=== PATIENT | male | born 1965 | race Hispanic/Latino ===

== ENCOUNTER 2022-06-25 16:04 | Inpatient (IN) | payer OTHER, SELFPAY ==
[~2022-06-25 16:04] MED LIST: Iopamidol-370 76% 500 ML 1 ML ONE; Rocuronium Bromide 10 MG/ML (10ML VIAL) ONE
[2022-06-25] MEDS ORDERED: EPINEPHrine 1 MG/10 ML Abboject SYRINGE ONE (16:11)
[2022-06-25] MEDS ORDERED: Succinylcholine 200 MG/10 ml SYRINGE FS ONE (16:11)
[2022-06-25] MEDS ORDERED: Tranexamic Acid 1,000 MG/10 ML VIAL ONE (16:12)
[2022-06-25] MEDS ORDERED: fentaNYL PF 100 MCG/2 ML SYRINGE ONE (16:18)
[2022-06-25] MEDS ORDERED: HYDROmorphone 2 MG/ML VIAL ONE (16:19)
[2022-06-25 16:25] LABS: Hemoglobin 15.1 g/dL (14.0-18.0); Mean Corpuscular HGB CONC 33.4 g/dL (32.0-36.0); Mean Corpuscular Hemoglobin 32.4 pg (27.0-31.0); Platelet Count 230 10x3/uL (130-400); Red Blood Cell (RBC) Count 4.66 mill/uL (4.70-6.10); White Blood Cell (WBC) Count 18.2 10x3/uL (4.8-10.8)
[2022-06-25] MEDS ORDERED: FENTANYL 50 MCG/ML 1 ML VIAL ONE ×2 (16:25)
[2022-06-25] MEDS ORDERED: Midazolam HCl 2 mg/2 ml Vial ONE (16:25)
[2022-06-25] MEDS ORDERED: Vecuronium 10 MG VIAL ONE (16:25)
[2022-06-25] MEDS ORDERED: Sterile Water 20 ML ONE (16:26)
[2022-06-25 16:38] LABS: INR-International Normal Ratio 1.3; PTT 35.6 sec (22.9-36.1); Prothrombin Time 16.9 sec (12.0-14.7)
[2022-06-25 16:41] LABS: Band 21 % (5-11); Eosinophils 1 % (0-10); Lymphocytes 20 % (21-51); MDiff Complete? YES; Monocytes 4 % (0-10); Neutrophil 36 % (42-75); Platelet Morphology Comment Appears Adequate; Polychromasia SLIGHT = 2-3 cells (100X) (0-2/hpf); Reactive Lymphocytes 17 % (0-10)
[2022-06-25] MEDS ORDERED: Heparin 10,000 UNITS/ 10 ML VIAL ONE (16:42)
[2022-06-25] MEDS ORDERED: Esmolol 100 MG/10 ML VIAL ONE (16:43)
[2022-06-25] MEDS ORDERED: Rocuronium Bromide 10 MG/ML (10ML VIAL) ONE (16:43)
[2022-06-25 16:50] LABS: ALT (SGPT) 1093 U/L (8-55); AST (SGOT) 1270 U/L (5-34); Albumin 3.7 g/dL (3.4-4.8); Alkaline Phosphatase 103 U/L (40-110); Anion Gap 24 mmol/L (10-20); BUN (Urea Nitrogen) 14 mg/dL (8.4-25.7); Bilirubin, Total 0.7 mg/dL (0.2-1.2); Calc. Creatinine Clearance 0 mL/min (70-130); Calcium 8.3 mg/dL (7.8-10.44); Carbon Dioxide 15 mmol/L (23-31); Chloride 100 mmol/L (98-107); Estimated GFR 63; Globulin 3.6 g/dL (2.4-3.5); Glucose 280 mg/dL (80-115); Lipase 37 U/L (8-78); Potassium 4.8 mmol/L (3.5-5.1); Protein, Total 7.3 g/dL (5.8-8.1); Sodium 134 mmol/L (136-145)
[2022-06-25 16:54] LABS: Acetaminophen Less than 10.0 mcg/mL (10.0-30.0); Alcohol Less than 10 mg/dL (Less than 10); Salicylate Less than 8.0 mg/dL (15.0-30.0)
[2022-06-25] MEDS ORDERED: Dextrose 50% Abboject 50 ML SYRINGE SLOW IVP PRN (17:01)
[2022-06-25] MEDS ORDERED: TETANUS, DIPHTHERIA TOX,ADULT (TDVAX) 0.5 ML VIAL IM ONE (17:01)
[2022-06-25] MEDS ORDERED: Dextrose 5% in Water 1,000 ML IV PRN (17:01)
[2022-06-25] MEDS ORDERED: Ondansetron PF 4 MG/2 ML Vial IVP PRN (17:01)
[2022-06-25] MEDS ORDERED: Sodium Bicarb 50 MEQ/50 ML VIAL ONE ×2 (17:07→22:29)
[2022-06-25] MEDS ORDERED: Propofol 1,000 MG/100 ML VIAL IV PRN (17:15)
[2022-06-25] MEDS ORDERED: Ventilator Sedation Protocol 1 EACH FS SCH (17:15)
[2022-06-25] MEDS ORDERED: Fentanyl BOLUS 250 ML IVPB PRN (17:15)
[2022-06-25] MEDS ORDERED: Propofol BOLUS 1,000 MG/100 ML VIAL IV PRN (17:15)
[2022-06-25 17:23] LABS: Magnesium 2.7 mg/dL (1.6-2.6)
[2022-06-25] MEDS ORDERED: Piperacillin/Tazobactam 3.375 GM in Sodium Chloride 0.9% 100 ML IVPB SCH (17:30)
[2022-06-25] MEDS ORDERED: Midazolam HCl 5 mg/5 ml Vial ONE (17:52)
[2022-06-25 18:34] LABS: Troponin I 0.831 ng/mL (< 0.028)
[2022-06-25] MEDS ORDERED: NOREPINEPHRINE 8 MG/250 ML-D5W 250 ML ONE (19:20)
[2022-06-25 19:27] LABS: Actual Bicarbonate (HCO3a) 18.1 mEq/L (22-28); Base Excess (BEa) -7.7 mEq/L (-2.0 to +3.0); CO2 Tension 38.2 mmHg (35.0-45.0); Calcium, Ionized (arterial) 1.18 mmol/L (1.12-1.30); Carboxyhemoglobin (COHb) 0.1 gm% (0.0-3.0); Hemoglobin (Hb) 12.3 g/dL (14.0-18.0); O2 Tension (PaO2), arterial 262.6 mmHg (> 80.0); Potassium - ABG Lab 4.91 mmol/L (3.70-5.30); pH, Arterial 7.29 (7.35-7.45)
[2022-06-25] MEDS ORDERED: Fentanyl CADD 100 ML ONE (19:30)
[2022-06-25] MEDS ORDERED: levETIRAcetam in NS 1,000 MG in Premix Bag 1 BAG IVPB SCH (19:45)
[2022-06-25] MEDS ORDERED: Sodium Bicarb 5 MEQ/10 ML Abboject 4.2% SYRINGE IVP SCH (19:45)
[2022-06-25] MEDS: Fentanyl CADD 100 ML IV SCH (19:54)
[2022-06-25] MEDS: Sodium Chloride 0.9% 1,000 ML IV SCH (19:54)
[2022-06-25 20:03] LABS: Puncture Site ALINE
[2022-06-25] MEDS ORDERED: levETIRAcetam 500 MG/5 ML VIAL SLOW IVP SCH (20:15)
[2022-06-25] MEDS ORDERED: Sodium Bicarbonate 2.5 MEQ/5 ML VIAL IV SCH (20:15)
[2022-06-25 20:30] LABS: Hemoglobin 10.7 g/dL (14.0-18.0); Mean Corpuscular HGB CONC 34.6 g/dL (32.0-36.0); Mean Corpuscular Hemoglobin 32.7 pg (27.0-31.0); Mean Corpuscular Volume 94.5 fl (78.0-98.0); Platelet Count 154 10x3/uL (130-400); RBC Distribution Width 12.3 % (11.5-14.5); Red Blood Cell (RBC) Count 3.26 mill/uL (4.70-6.10); White Blood Cell (WBC) Count 30.9 10x3/uL (4.8-10.8)
[2022-06-25 20:49] LABS: Lactic Acid 7.4 mmol/L (0.5-2.2)
[2022-06-25 20:51] LABS: Band 33 % (5-11); Lymphocytes 10 % (21-51); MDiff Complete? YES; Metamyelocyte 1 % (0-0); Monocytes 1 % (0-10); Myelocyte 1 % (0-0); Neutrophil 54 % (42-75); Nucleated RBC 2 % (0)
[2022-06-25] MEDS ORDERED: Famotidine/PF 20 mg/2ml Vial SLOW IVP SCH (21:00)
[2022-06-25 21:02] LABS: Anion Gap 16 mmol/L (10-20); BUN (Urea Nitrogen) 16 mg/dL (8.4-25.7); CK (CPK) 1474 U/L (30-200); Calc. Creatinine Clearance 0 mL/min (70-130); Calcium 7.8 mg/dL (7.8-10.44); Carbon Dioxide 19 mmol/L (23-31); Chloride 106 mmol/L (98-107); Estimated GFR 68; Glucose 283 mg/dL (80-115); Magnesium 1.9 mg/dL (1.6-2.6); Phosphorus 5.5 mg/dL (2.3-4.7); Potassium 4.6 mmol/L (3.5-5.1); Sodium 136 mmol/L (136-145)
[2022-06-25] MEDS ORDERED: Sodium Chloride 0.9% 500 ML IV SCH ×2 (21:15)
[2022-06-25 21:18] LABS: Base Excess (BEa) -12.8 mEq/L (-2.0 to +3.0); CO2 Tension 39.4 mmHg (35.0-45.0); Carboxyhemoglobin (COHb) 0.3 gm% (0.0-3.0); Hemoglobin (Hb) 10.6 g/dL (14.0-18.0); O2 Tension (PaO2), arterial 137.4 mmHg (> 80.0)
[2022-06-25 21:20] LABS: Actual Bicarbonate (HCO3a) 14.6 mEq/L (22-28); Puncture Site ALINE; pH, Arterial 7.19 (7.35-7.45)
[2022-06-25 21:20] LABS: CKMB 32.5 ng/mL (0-6.6)
[2022-06-25] MEDS ORDERED: Sodium Chloride 0.9% 1,000 ML IV SCH ×2 (21:30→23:00)
[2022-06-25] MEDS ORDERED: Calcium Chloride 1 GM/10 ML Abboject SYRINGE ONE (21:51)
[2022-06-25] MEDS: Piperacillin/Tazobactam 3.375 GM in Sodium Chloride 0.9% 100 ML IVPB SCH ×3 (21:55→22:00)
[2022-06-25] MEDS ORDERED: Calcium Chloride 1 GM/10 ML Abboject SYRINGE IVP SCH ×2 (22:00→23:45)
[2022-06-25 22:06] LABS: Hemoglobin 9.6 g/dL (14.0-18.0); Mean Corpuscular HGB CONC 33.5 g/dL (32.0-36.0); Mean Corpuscular Hemoglobin 32.2 pg (27.0-31.0); Mean Platelet Volume 8.1 fL (7.4-10.4); Platelet Count 148 10x3/uL (130-400); RBC Distribution Width 12.6 % (11.5-14.5); Red Blood Cell (RBC) Count 2.98 mill/uL (4.70-6.10); White Blood Cell (WBC) Count 30.5 10x3/uL (4.8-10.8)
[2022-06-25 22:09] LABS: Bacteria/HPF None Seen HPF (None Seen); Bilirubin Negative (Negative); Blood, Urine 3+ (Negative); CAUTI Indications for Culture Pelvic or flank pain; Clarity Extra Turbid (Clear); Glucose, Urine (Dipstick) Normal (Negative); Ketone, Urine Negative (Negative); Leukocyte 75 Leu/uL (Negative); Nitrite Negative (Negative); Protein, Urine (Dipstick) 70 mg/dL (Neg-Trace); RBC/HPF Greater than 50 HPF (0-3); Squamous Epithelial 0-3 HPF (0-3); Urobilinogen Normal mg/dL (Less than 2); pH, Urine 5.5 (5.0-9.0)
[2022-06-25 22:11] LABS: Specific Gravity, Urine 1.054 (1.002-1.036)
[2022-06-25 22:12] LABS: Amphetamine Not Detected (NotDetected); Barbiturates Screen Not Detected (NotDetected); Benzodiazepine Screen Not Detected (NotDetected); Cocaine Metabolite Screen Detected (NotDetected); Methadone Not Detected (NotDetected); Methamphetamine Not Detected (NotDetected); Opiate Screen Not Detected (NotDetected); Oxycodone Screen Not Detected (NotDetected); Phencyclidine (PCP) Not Detected (NotDetected); THC/Cannabinoid Screen Detected (NotDetected); Tricyclic Screen Not Detected (NotDetected); Urine Culture Reflex No No
[2022-06-25 22:23] LABS: Band 25 % (5-11); Lymphocytes 9 % (21-51); MDiff Complete? YES; Metamyelocyte 1 % (0-0); Myelocyte 1 % (0-0); Neutrophil 63 % (42-75)
[2022-06-25] MEDS ORDERED: Sodium Bicarb 50 MEQ/50 ML VIAL IVP SCH ×2 (22:45→23:45)
[2022-06-25 23:18] LABS: Lactic Acid 12.2 mmol/L (0.5-2.2)
[2022-06-25 23:37] LABS: Actual Bicarbonate (HCO3a) 15.5 mEq/L (22-28); CO2 Tension 41.7 mmHg (35.0-45.0); Calcium, Ionized (arterial) 1.08 mmol/L (1.12-1.30); Carboxyhemoglobin (COHb) 0.3 gm% (0.0-3.0); Hemoglobin (Hb) 10.2 g/dL (14.0-18.0); O2 Tension (PaO2), arterial 76.7 mmHg (> 80.0); Potassium - ABG Lab 4.77 mmol/L (3.70-5.30)
[2022-06-25] MEDS: Calcium Chloride 1 GM/10 ML Abboject SYRINGE ONE ×2 (23:37→23:39)
[2022-06-25 23:38] LABS: ALV-art Gradient 370.275 mmHg (0-20); Puncture Site ALINE; pH, Arterial 7.19 (7.35-7.45)
[2022-06-25] MEDS: Sodium Bicarb 50 MEQ/50 ML VIAL ONE ×2 (23:38→23:39)
[2022-06-25] MEDS ORDERED: Magnesium 2 GM/50 ML(in water) 2 GM in Premix Bag 1 BAG IVPB SCH (23:45)
[2022-06-25] MEDS ORDERED: Hydrocortisone Sod Succ/PF 100 mg/2 ml Vial IVP SCH (23:45)
[2022-06-26] MEDS ORDERED: Sodium Chloride 0.9% 1,000 ML IV SCH ×2 (01:00→06:00)
[2022-06-26] MEDS ORDERED: Sodium Bicarb 50 MEQ/50 ML VIAL ONE ×4 (02:01→06:43)
[2022-06-26] MEDS: Sodium Chloride 0.9% 1,000 ML IV SCH (02:10)
[2022-06-26] MEDS ORDERED: Sodium Bicarb 50 MEQ/50 ML VIAL IVP SCH ×3 (02:15→07:00)
[2022-06-26 02:39] LABS: Hemoglobin 10.4 g/dL (14.0-18.0); Mean Corpuscular HGB CONC 34.4 g/dL (32.0-36.0); Mean Corpuscular Hemoglobin 32.1 pg (27.0-31.0); Mean Corpuscular Volume 93.2 fl (78.0-98.0); Mean Platelet Volume 7.8 fL (7.4-10.4); Platelet Count 122 10x3/uL (130-400); RBC Distribution Width 12.3 % (11.5-14.5); Red Blood Cell (RBC) Count 3.23 mill/uL (4.70-6.10)
[2022-06-26 02:47] LABS: INR-International Normal Ratio 1.7
[2022-06-26 03:09] LABS: Band 32 % (5-11); Lymphocytes 7 % (21-51); MDiff Complete? YES; Metamyelocyte 1 % (0-0); Monocytes 1 % (0-10); Neutrophil 59 % (42-75)
[2022-06-26 03:15] LABS: ALT (SGPT) 449 U/L (8-55); AST (SGOT) 909 U/L (5-34); Albumin 2.4 g/dL (3.4-4.8); Alkaline Phosphatase 68 U/L (40-110); Anion Gap 23 mmol/L (10-20); BUN (Urea Nitrogen) 18 mg/dL (8.4-25.7); Calc. Creatinine Clearance 0 mL/min (70-130); Calcium 8.9 mg/dL (7.8-10.44); Carbon Dioxide 16 mmol/L (23-31); Chloride 110 mmol/L (98-107); Estimated GFR 45; Globulin 1.8 g/dL (2.4-3.5); Glucose 243 mg/dL (80-115); Magnesium 2.6 mg/dL (1.6-2.6); Phosphorus 6.7 mg/dL (2.3-4.7); Potassium 4.7 mmol/L (3.5-5.1); Protein, Total 4.2 g/dL (5.8-8.1); Sodium 144 mmol/L (136-145)
[2022-06-26] MEDS ORDERED: Sodium Chloride 0.9% 500 ML IV SCH (04:45)
[2022-06-26] MEDS: NOREPINEPHRINE 8 MG/250 ML-D5W 250 ML IVPB SCH ×2 (04:51→12:26)
[2022-06-26 05:05] LABS: Base Excess (BEa) -18.2 mEq/L (-2.0 to +3.0); CO2 Tension 38.2 mmHg (35.0-45.0); Calcium, Ionized (arterial) 1.17 mmol/L (1.12-1.30); Carboxyhemoglobin (COHb) 0.3 gm% (0.0-3.0); Hemoglobin (Hb) 10.6 g/dL (14.0-18.0); Potassium - ABG Lab 5.52 mmol/L (3.70-5.30)
[2022-06-26 05:09] LABS: Actual Bicarbonate (HCO3a) 10.9 mEq/L (22-28); Puncture Site LBA; pH, Arterial 7.07 (7.35-7.45)
[2022-06-26 05:41] LABS: Lactic Acid 15.1 mmol/L (0.5-2.2)
[2022-06-26 05:42] LABS: Troponin I 7.017 ng/mL (< 0.028)
[2022-06-26] MEDS ORDERED: DOBUTamine 500 mg/250 ml 250 ML ONE (05:44)
[2022-06-26] MEDS: Hydrocortisone Sod Succ/PF 100 mg/2 ml Vial IVP SCH ×4 (05:45→23:56)
[2022-06-26] MEDS: Piperacillin/Tazobactam 3.375 GM in Sodium Chloride 0.9% 100 ML IVPB SCH ×3 (05:46→21:33)
[2022-06-26] MEDS ORDERED: DOBUTamine 500 mg/250 ml 500 MG in Premix Bag 1 BAG IVPB SCH (06:00)
[2022-06-26 07:42] LABS: Actual Bicarbonate (HCO3a) 16.6 mEq/L (22-28); Base Excess (BEa) -7.5 mEq/L (-2.0 to +3.0); CO2 Tension 29.3 mmHg (35.0-45.0); Calcium, Ionized (arterial) 1.06 mmol/L (1.12-1.30); Carboxyhemoglobin (COHb) 0.3 gm% (0.0-3.0); Hemoglobin (Hb) 10.2 g/dL (14.0-18.0); Potassium - ABG Lab 4.35 mmol/L (3.70-5.30); pH, Arterial 7.37 (7.35-7.45)
[2022-06-26] MEDS ORDERED: Hetastarch 6% 500 ML 500 ML ONE (07:44)
[2022-06-26 07:45] LABS: ALV-art Gradient 311.475 mmHg (0-20); Puncture Site Arterial Line
[2022-06-26] MEDS ORDERED: Vecuronium 10 MG VIAL ONE (07:45)
[2022-06-26] MEDS ORDERED: Vasopressin 20 UNIT, Admixture Fee 1 EACH in Sodium Chloride 0.9% 50 ML IV SCH (07:45)
[2022-06-26] MEDS ORDERED: Sterile Water 10 ML ONE (07:45)
[2022-06-26] MEDS ORDERED: Midazolam HCl 2 mg/2 ml Vial ONE ×4 (07:45→12:11)
[2022-06-26 07:49] LABS: Hemoglobin 9.6 g/dL (14.0-18.0); Mean Corpuscular Hemoglobin 32.2 pg (27.0-31.0); Mean Corpuscular Volume 94.6 fl (78.0-98.0); Mean Platelet Volume 8.5 fL (7.4-10.4); Platelet Count 102 10x3/uL (130-400); RBC Distribution Width 12.7 % (11.5-14.5); White Blood Cell (WBC) Count 15.9 10x3/uL (4.8-10.8)
[2022-06-26 07:58] LABS: Phosphorus 7.6 mg/dL (2.3-4.7)
[2022-06-26 08:10] LABS: Band 23 % (5-11); Hypochromia SLIGHT = 6-15 cells (100X) (0-5/hpf); Lymphocytes 14 % (21-51); MDiff Complete? YES; Neutrophil 63 % (42-75); Platelet Morphology Comment Appears Decreased
[2022-06-26 08:15] LABS: Lactic Acid 17.9 mmol/L (0.5-2.2)
[2022-06-26 08:41] LABS: Actual Bicarbonate (HCO3a) 15.1 mEq/L (22-28); Base Excess (BEa) -9.6 mEq/L (-2.0 to +3.0); CO2 Tension 28.9 mmHg (35.0-45.0); Calcium, Ionized (arterial) 1.04 mmol/L (1.12-1.30); Carboxyhemoglobin (COHb) 0.3 gm% (0.0-3.0); Hemoglobin (Hb) 8.5 g/dL (14.0-18.0); O2 Tension (PaO2), arterial 106.2 mmHg (> 80.0); Potassium - ABG Lab 4.08 mmol/L (3.70-5.30); pH, Arterial 7.34 (7.35-7.45)
[2022-06-26 08:44] LABS: ALV-art Gradient 356.775 mmHg (0-20); Puncture Site Arterial Line
[2022-06-26] MEDS ORDERED: Lidocaine 1% (PF) 30 ML VIAL ONE (08:55)
[2022-06-26] MEDS ORDERED: levETIRAcetam in NS 500 MG in Premix Bag 1 BAG IVPB SCH (09:00)
[2022-06-26] MEDS ORDERED: Lactated Ringer's 1,000 ML IV SCH (09:00)
[2022-06-26 09:09] LABS: Band 28 % (5-11); Hemoglobin 8.3 g/dL (14.0-18.0); Hypochromia SLIGHT = 6-15 cells (100X) (0-5/hpf); Lymphocytes 15 % (21-51); MDiff Complete? YES; Mean Corpuscular Volume 94.2 fl (78.0-98.0); Mean Platelet Volume 8.8 fL (7.4-10.4); Monocytes 5 % (0-10); Neutrophil 50 % (42-75); Platelet Count 85 10x3/uL (130-400); Platelet Morphology Comment Appears Decreased; RBC Distribution Width 12.7 % (11.5-14.5); Reactive Lymphocytes 2 % (0-10); Red Blood Cell (RBC) Count 2.58 mill/uL (4.70-6.10); White Blood Cell (WBC) Count 14.6 10x3/uL (4.8-10.8)
[2022-06-26 09:11] LABS: INR-International Normal Ratio 2.4; Prothrombin Time 27.1 sec (12.0-14.7)
[2022-06-26 09:12] LABS: Anion Gap 28 mmol/L (10-20); BUN (Urea Nitrogen) 19 mg/dL (8.4-25.7); Calc. Creatinine Clearance 46 mL/min (70-130); Calcium 8.1 mg/dL (7.8-10.44); Carbon Dioxide 17 mmol/L (23-31); Chloride 110 mmol/L (98-107); Estimated GFR 42; Glucose 163 mg/dL (80-115); PTT 42.8 sec (22.9-36.1); Potassium 4.3 mmol/L (3.5-5.1)
[2022-06-26 09:28] LABS: Lactic Acid 18.3 mmol/L (0.5-2.2); Sodium 151 mmol/L (136-145)
[2022-06-26] MEDS ORDERED: FENTANYL 50 MCG/ML 1 ML VIAL ONE ×2 (09:44→10:48)
[2022-06-26] MEDS ORDERED: Iopamidol 370 76% 50 ML VIAL FS ONE (11:02)
[2022-06-26] MEDS ORDERED: Iopamidol 370 76% 100 ML VIAL ONE (11:02)
[2022-06-26] MEDS ORDERED: Dextrose 5 %-0.45 % NaCl 1,000 ML IV SCH (11:30)
[2022-06-26 11:34] LABS: Hemoglobin 10.8 g/dL (14.0-18.0); Mean Corpuscular HGB CONC 33.3 g/dL (32.0-36.0); Mean Corpuscular Hemoglobin 31.2 pg (27.0-31.0); Mean Corpuscular Volume 93.8 fl (78.0-98.0); Mean Platelet Volume 8.5 fL (7.4-10.4); Platelet Count 101 10x3/uL (130-400); RBC Distribution Width 12.5 % (11.5-14.5); Red Blood Cell (RBC) Count 3.46 mill/uL (4.70-6.10); White Blood Cell (WBC) Count 18.6 10x3/uL (4.8-10.8)
[2022-06-26] MEDS: levETIRAcetam 500 MG/5 ML VIAL SLOW IVP SCH ×2 (11:40→20:32)
[2022-06-26] MEDS: Sodium Bicarbonate 100 MEQ in Dextrose 5% in Water 1,000 ML IV SCH ×3 (11:40→20:49)
[2022-06-26 11:44] LABS: Actual Bicarbonate (HCO3a) 15.8 mEq/L (22-28); Base Excess (BEa) -8.9 mEq/L (-2.0 to +3.0); CO2 Tension 30.2 mmHg (35.0-45.0); Calcium, Ionized (arterial) 1.06 mmol/L (1.12-1.30); Carboxyhemoglobin (COHb) 0.5 gm% (0.0-3.0); Hemoglobin (Hb) 10.9 g/dL (14.0-18.0); O2 Tension (PaO2), arterial 74.7 mmHg (> 80.0); Potassium - ABG Lab 4.27 mmol/L (3.70-5.30); pH, Arterial 7.34 (7.35-7.45)
[2022-06-26 11:45] LABS: Puncture Site Arterial Line
[2022-06-26 11:53] LABS: Band 31 % (5-11); Hypochromia SLIGHT = 6-15 cells (100X) (0-5/hpf); Lymphocytes 14 % (21-51); MDiff Complete? YES; Monocytes 4 % (0-10); Neutrophil 51 % (42-75); Platelet Morphology Comment Appears Decreased
[2022-06-26] MEDS ORDERED: Calcium Chloride 1 GM/10 ML Abboject SYRINGE IVP SCH ×2 (12:15→17:15)
[2022-06-26] MEDS ORDERED: Midazolam HCl 2 mg/2 ml Vial SLOW IVP SCH (13:00)
[2022-06-26 14:09] LABS: Actual Bicarbonate (HCO3v) 17 mEq/L (22-28); Base Excess -8.7 mEq/L (-2.0 to +3.0); Calcium, Ionized (venous) 1.13 mmol/L (1.16-1.32); Chloride (VBG) 107 mmol/L (98-106); Hemoglobin (Hb) 10.6 g/dL (12.6-17.4); Potassium (VBG) 4.24 mmol/L (3.70-5.30)
[2022-06-26 14:22] LABS: Anion Gap 24 mmol/L (10-20); BUN (Urea Nitrogen) 19 mg/dL (8.4-25.7); Calc. Creatinine Clearance 51 mL/min (70-130); Carbon Dioxide 18 mmol/L (23-31); Chloride 111 mmol/L (98-107); Estimated GFR 47; Glucose 203 mg/dL (80-115); Potassium 4.2 mmol/L (3.5-5.1); Sodium 149 mmol/L (136-145)
[2022-06-26 14:41] LABS: Lactic Acid 12.3 mmol/L (0.5-2.2)
[2022-06-26] MEDS: Insulin Regular 300 UNITS/3 ML VIAL SC PRN ×2 (16:10→21:33)
[2022-06-26 18:23] LABS: Hemoglobin 9.6 g/dL (14.0-18.0); Mean Corpuscular HGB CONC 33.9 g/dL (32.0-36.0); Mean Corpuscular Hemoglobin 31.5 pg (27.0-31.0); Mean Corpuscular Volume 92.7 fl (78.0-98.0); Mean Platelet Volume 8.8 fL (7.4-10.4); Platelet Count 89 10x3/uL (130-400); RBC Distribution Width 12.8 % (11.5-14.5); Red Blood Cell (RBC) Count 3.04 mill/uL (4.70-6.10); White Blood Cell (WBC) Count 18.1 10x3/uL (4.8-10.8)
[2022-06-26 18:38] LABS: INR-International Normal Ratio 2.3; PTT 37.3 sec (22.9-36.1); Prothrombin Time 26.7 sec (12.0-14.7)
[2022-06-26 18:44] LABS: Band 27 % (5-11); Lactic Acid 12.4 mmol/L (0.5-2.2); Lymphocytes 8 % (21-51); MDiff Complete? YES; Metamyelocyte 1 % (0-0); Monocytes 1 % (0-10); Neutrophil 63 % (42-75); Ovalocytes SLIGHT = 2-5 cells (100X) (0-1/hpf); Platelet Morphology Comment Appears Decreased; Polychromasia SLIGHT = 2-3 cells (100X) (0-2/hpf)
[2022-06-26 18:49] LABS: Anion Gap 22 mmol/L (10-20); BUN (Urea Nitrogen) 22 mg/dL (8.4-25.7); Calc. Creatinine Clearance 47 mL/min (70-130); Calcium 10.6 mg/dL (7.8-10.44); Carbon Dioxide 19 mmol/L (23-31); Chloride 110 mmol/L (98-107); Estimated GFR 43; Glucose 220 mg/dL (80-115); Magnesium 2.2 mg/dL (1.6-2.6); Phosphorus 5.9 mg/dL (2.3-4.7); Potassium 3.9 mmol/L (3.5-5.1); Sodium 147 mmol/L (136-145)
[2022-06-26] MEDS: Famotidine/PF 20 mg/2ml Vial SLOW IVP SCH (20:32)
[2022-06-26] MEDS: Melatonin 3 MG TAB PO SCH (20:32)
[2022-06-26 22:41] LABS: Band 41 % (5-11); Hemoglobin 9.1 g/dL (14.0-18.0); Lymphocytes 5 % (21-51); MDiff Complete? YES; Mean Corpuscular HGB CONC 33.4 g/dL (32.0-36.0); Mean Corpuscular Hemoglobin 30.3 pg (27.0-31.0); Mean Corpuscular Volume 90.9 fl (78.0-98.0); Mean Platelet Volume 9.5 fL (7.4-10.4); Monocytes 3 % (0-10); Neutrophil 51 % (42-75); Platelet Count 89 10x3/uL (130-400); Platelet Morphology Comment Appears Decreased; RBC Distribution Width 12.9 % (11.5-14.5); Red Blood Cell (RBC) Count 2.99 mill/uL (4.70-6.10); White Blood Cell (WBC) Count 17.9 10x3/uL (4.8-10.8)
[2022-06-26 22:58] LABS: Lactic Acid 9.6 mmol/L (0.5-2.2)
[2022-06-26 23:17] LABS: Anion Gap 20 mmol/L (10-20); BUN (Urea Nitrogen) 23 mg/dL (8.4-25.7); Calc. Creatinine Clearance 53 mL/min (70-130); Calcium 8.9 mg/dL (7.8-10.44); Carbon Dioxide 20 mmol/L (23-31); Chloride 110 mmol/L (98-107); Estimated GFR 49; Glucose 220 mg/dL (80-115); Magnesium 2.2 mg/dL (1.6-2.6); Phosphorus 4.5 mg/dL (2.3-4.7); Potassium 3.9 mmol/L (3.5-5.1); Sodium 146 mmol/L (136-145)
[2022-06-27] MEDS: Insulin Regular 300 UNITS/3 ML VIAL SC PRN ×3 (00:01→08:01)
[2022-06-27 05:15] LABS: INR-International Normal Ratio 2.3; PTT 37.2 sec (22.9-36.1)
[2022-06-27 05:19] LABS: Anion Gap 20 mmol/L (10-20); BUN (Urea Nitrogen) 24 mg/dL (8.4-25.7); Calc. Creatinine Clearance 53 mL/min (70-130); Calcium 8.7 mg/dL (7.8-10.44); Carbon Dioxide 23 mmol/L (23-31); Chloride 107 mmol/L (98-107); Estimated GFR 49; Glucose 261 mg/dL (80-115); Magnesium 2.2 mg/dL (1.6-2.6); Phosphorus 3.7 mg/dL (2.3-4.7); Potassium 3.7 mmol/L (3.5-5.1); Sodium 146 mmol/L (136-145)
[2022-06-27 05:22] LABS: Lactic Acid 7.6 mmol/L (0.5-2.2)
[2022-06-27 05:31] LABS: CK (CPK) 4280 U/L (30-200)
[2022-06-27] MEDS: Hydrocortisone Sod Succ/PF 100 mg/2 ml Vial IVP SCH ×3 (05:57→17:27)
[2022-06-27] MEDS: Piperacillin/Tazobactam 3.375 GM in Sodium Chloride 0.9% 100 ML IVPB SCH ×3 (05:57→21:20)
[2022-06-27 07:08] LABS: Band 72 % (5-11); Hemoglobin 9.4 g/dL (14.0-18.0); Lymphocytes 7 % (21-51); MDiff Complete? YES; Mean Corpuscular HGB CONC 35.1 g/dL (32.0-36.0); Mean Corpuscular Hemoglobin 31.9 pg (27.0-31.0); Mean Platelet Volume 9.7 fL (7.4-10.4); Monocytes 1 % (0-10); Neutrophil 20 % (42-75); Platelet Count 88 10x3/uL (130-400); Platelet Morphology Comment Appears Decreased; Polychromasia SLIGHT = 2-3 cells (100X) (0-2/hpf); RBC Distribution Width 12.8 % (11.5-14.5); Red Blood Cell (RBC) Count 2.94 mill/uL (4.70-6.10); White Blood Cell (WBC) Count 17.8 10x3/uL (4.8-10.8)
[2022-06-27] MEDS: Sodium Bicarbonate 100 MEQ in Dextrose 5% in Water 1,000 ML IV SCH ×2 (07:27→17:11)
[2022-06-27] MEDS: Fentanyl CADD 100 ML IV SCH (08:28)
[2022-06-27] MEDS: levETIRAcetam 500 MG/5 ML VIAL SLOW IVP SCH ×2 (08:28→21:21)
[2022-06-27] MEDS ORDERED: Metoprolol Tartrate 25 MG TAB PO SCH ×2 (09:00)
[2022-06-27] MEDS ORDERED: Potassium Phosphate 30 MMOL in Sodium Chloride 0.9% 250 ML 250 ML IVPB SCH (09:00)
[2022-06-27 09:19] LABS: Actual Bicarbonate (HCO3a) 27.2 mEq/L (22-28); CO2 Tension 31.1 mmHg (35.0-45.0); Calcium, Ionized (arterial) 1.07 mmol/L (1.12-1.30); Carboxyhemoglobin (COHb) 0.2 gm% (0.0-3.0); Hemoglobin (Hb) 9.6 g/dL (14.0-18.0); Potassium - ABG Lab 3.01 mmol/L (3.70-5.30); pH, Arterial 7.56 (7.35-7.45)
[2022-06-27 09:31] LABS: O2 Tension (PaO2), arterial 58.9 mmHg (> 80.0)
[2022-06-27 09:32] LABS: ALV-art Gradient 258.725 mmHg (0-20); Puncture Site Arterial Line
[2022-06-27] MEDS: HUMULIN R 100 UNITS in Sodium Chloride 0.9% 100 ML IVPB SCH (10:27)
[2022-06-27] MEDS: Metoprolol Tartrate 25 MG TAB PO SCH (17:45)
[2022-06-27] MEDS: Famotidine/PF 20 mg/2ml Vial SLOW IVP SCH (21:20)
[2022-06-27] MEDS: Melatonin 3 MG TAB PO SCH (21:21)
[2022-06-28] MEDS: Acetaminophen 650 MG/20.3 ML UDCUP PO SCH ×4 (01:07→16:48)
[2022-06-28] MEDS: Hydrocortisone Sod Succ/PF 100 mg/2 ml Vial IVP SCH ×4 (01:08→18:05)
[2022-06-28] MEDS: Sodium Bicarbonate 100 MEQ in Dextrose 5% in Water 1,000 ML IV SCH (04:38)
[2022-06-28] MEDS: HUMULIN R 100 UNITS in Sodium Chloride 0.9% 100 ML IVPB SCH (04:38)
[2022-06-28 05:38] LABS: Hemoglobin 8.5 g/dL (14.0-18.0); Mean Corpuscular HGB CONC 34.7 g/dL (32.0-36.0); Mean Corpuscular Hemoglobin 32.3 pg (27.0-31.0); Mean Corpuscular Volume 93.1 fl (78.0-98.0); Mean Platelet Volume 9.3 fL (7.4-10.4); Platelet Count 89 10x3/uL (130-400); RBC Distribution Width 12.5 % (11.5-14.5); Red Blood Cell (RBC) Count 2.64 mill/uL (4.70-6.10); White Blood Cell (WBC) Count 14.2 10x3/uL (4.8-10.8)
[2022-06-28 05:49] LABS: Band 42 % (5-11); Lymphocytes 7 % (21-51); MDiff Complete? YES; Monocytes 6 % (0-10); Neutrophil 45 % (42-75); Platelet Morphology Comment Appears Decreased
[2022-06-28 05:55] LABS: Critical Call Chem Troponin I RESULT DECREASING; Troponin I 2.448 ng/mL (< 0.028)
[2022-06-28 05:58] LABS: Anion Gap 9 mmol/L (10-20); BUN (Urea Nitrogen) 28 mg/dL (8.4-25.7); Calc. Creatinine Clearance 69 mL/min (70-130); Calcium 7.9 mg/dL (7.8-10.44); Carbon Dioxide 35 mmol/L (23-31); Chloride 103 mmol/L (98-107); Estimated GFR 67; Glucose 159 mg/dL (80-115); Magnesium 2.1 mg/dL (1.6-2.6); Phosphorus 2.9 mg/dL (2.3-4.7); Potassium 2.9 mmol/L (3.5-5.1); Sodium 144 mmol/L (136-145)
[2022-06-28] MEDS: Piperacillin/Tazobactam 3.375 GM in Sodium Chloride 0.9% 100 ML IVPB SCH ×3 (06:19→21:15)
[2022-06-28] MEDS: Metoprolol Tartrate 25 MG TAB PO SCH ×3 (06:21→19:49)
[2022-06-28 06:53] LABS: SARS-CoV-2 NAA Rapid Test Not Detected (NotDetected)
[2022-06-28] MEDS ORDERED: Potassium Phosphate 30 MMOL in Sodium Chloride 0.9% 250 ML 250 ML IVPB SCH (08:30)
[2022-06-28] MEDS ORDERED: Morphine 2 MG/ML VIAL SLOW IVP PRN (09:49)
[2022-06-28 09:54] LABS: Lactic Acid 2.6 mmol/L (0.5-2.2)
[2022-06-28] MEDS: levETIRAcetam 500 MG/5 ML VIAL SLOW IVP SCH ×2 (09:59→21:13)
[2022-06-28] MEDS: Famotidine/PF 20 mg/2ml Vial SLOW IVP SCH ×2 (09:59→21:13)
[2022-06-28] MEDS: Acetaminophen 500 MG TAB PO SCH ×3 (13:14→21:13)
[2022-06-28] MEDS: Morphine 4 MG/ML VIAL SLOW IVP PRN ×2 (14:14→22:44)
[2022-06-28] MEDS: hydrALAZINE 20 MG/ML VIAL SLOW IVP PRN (15:37)
[2022-06-28] MEDS: Melatonin 3 MG TAB PO SCH ×2 (21:13→21:25)
[2022-06-28] MEDS ORDERED: Labetalol HCl 100 MG/20 ML VIAL SLOW IVP SCH (21:15)
[2022-06-29] MEDS: Hydrocortisone Sod Succ/PF 100 mg/2 ml Vial IVP SCH ×4 (00:08→20:36)
[2022-06-29] MEDS: cloNIDine 0.1 MG TAB PO SCH ×4 (00:08→22:34)
[2022-06-29] MEDS ORDERED: diphenhydrAMINE 50 MG/ML VIAL ONE (01:08)
[2022-06-29] MEDS ORDERED: diphenhydrAMINE 50 MG/ML VIAL IVP SCH (01:15)
[2022-06-29] MEDS ORDERED: Midazolam HCl 2 mg/2 ml Vial ONE ×3 (01:15→14:45)
[2022-06-29] MEDS ORDERED: Midazolam HCl 2 mg/2 ml Vial SLOW IVP SCH ×2 (01:15→02:10)
[2022-06-29] MEDS ORDERED: Furosemide 40 MG/4 ML VIAL ONE (01:35)
[2022-06-29] MEDS ORDERED: Furosemide 20 MG/2 ML VIAL SLOW IVP SCH ×2 (01:45→13:45)
[2022-06-29 02:31] LABS: Actual Bicarbonate (HCO3a) 33.1 mEq/L (22-28); Base Excess (BEa) 7.7 mEq/L (-2.0 to +3.0); CO2 Tension 51.1 mmHg (35.0-45.0); Calcium, Ionized (arterial) 1.07 mmol/L (1.12-1.30); Carboxyhemoglobin (COHb) 0.3 gm% (0.0-3.0); Hemoglobin (Hb) 9.5 g/dL (14.0-18.0); Potassium - ABG Lab 2.95 mmol/L (3.70-5.30); pH, Arterial 7.43 (7.35-7.45)
[2022-06-29 02:32] LABS: Puncture Site LRA
[2022-06-29] MEDS ORDERED: Calcium Chloride 1 GM/10 ML Abboject SYRINGE IVP SCH (02:45)
[2022-06-29] MEDS ORDERED: Calcium Chloride 1 GM/10 ML Abboject SYRINGE ONE (02:53)
[2022-06-29] MEDS ORDERED: Potassium Chloride 40 MEQ in Premix Bag 1 BAG IVPB SCH ×2 (03:00→13:00)
[2022-06-29] MEDS: Acetaminophen 500 MG TAB PO SCH ×4 (03:22→20:40)
[2022-06-29] MEDS ORDERED: Dextrose 5% in Water 1,000 ML IV PRN (03:26)
[2022-06-29] MEDS ORDERED: Dextrose 50% Abboject 50 ML SYRINGE SLOW IVP PRN (03:26)
[2022-06-29 05:02] LABS: #Lymphocytes 1.6 thou/uL (1.20-3.40); #Monocytes 0.7 thou/uL (0.11-0.59); #Neutrophils 12.3 thou/uL (1.40-6.50); %Basophils 0.1 % (0.0-1.0); %Eosinophils 0.1 % (0.0-10.0); %Lymphocytes 10.7 % (21.0-51.0); %Monocytes 5.1 % (0.0-10.0); Hemoglobin 8.4 g/dL (14.0-18.0); Mean Corpuscular HGB CONC 34.6 g/dL (32.0-36.0); Mean Corpuscular Hemoglobin 32.6 pg (27.0-31.0); Mean Corpuscular Volume 94.4 fl (78.0-98.0); Mean Platelet Volume 8.7 fL (7.4-10.4); Platelet Count 104 10x3/uL (130-400); RBC Distribution Width 12.4 % (11.5-14.5); Red Blood Cell (RBC) Count 2.56 mill/uL (4.70-6.10); White Blood Cell (WBC) Count 14.6 10x3/uL (4.8-10.8)
[2022-06-29 05:09] LABS: Lactic Acid 1.7 mmol/L (0.5-2.2)
[2022-06-29 05:21] LABS: Anion Gap 11 mmol/L (10-20); BUN (Urea Nitrogen) 26 mg/dL (8.4-25.7); Calc. Creatinine Clearance 86 mL/min (70-130); Calcium 9.5 mg/dL (7.8-10.44); Carbon Dioxide 33 mmol/L (23-31); Chloride 106 mmol/L (98-107); Estimated GFR 90; Glucose 131 mg/dL (80-115); Phosphorus 4.2 mg/dL (2.3-4.7); Potassium 3.3 mmol/L (3.5-5.1); Sodium 147 mmol/L (136-145)
[2022-06-29] MEDS: Metoprolol Tartrate 25 MG TAB PO SCH ×3 (06:31→20:59)
[2022-06-29] MEDS: Piperacillin/Tazobactam 3.375 GM in Sodium Chloride 0.9% 100 ML IVPB SCH ×3 (06:31→22:34)
[2022-06-29 07:45] LABS: Actual Bicarbonate (HCO3a) 33.1 mEq/L (22-28); Base Excess (BEa) 8.6 mEq/L (-2.0 to +3.0); Calcium, Ionized (arterial) 1.19 mmol/L (1.12-1.30); Carboxyhemoglobin (COHb) 0.6 gm% (0.0-3.0); Hemoglobin (Hb) 8.3 g/dL (14.0-18.0); Potassium - ABG Lab 3.24 mmol/L (3.70-5.30); pH, Arterial 7.48 (7.35-7.45)
[2022-06-29 07:47] LABS: Puncture Site RBA
[2022-06-29] MEDS: levETIRAcetam 500 MG/5 ML VIAL SLOW IVP SCH ×2 (11:34→20:36)
[2022-06-29] MEDS: Famotidine/PF 20 mg/2ml Vial SLOW IVP SCH ×2 (11:34→20:37)
[2022-06-29] MEDS: carBAMazepine 200 MG TAB PO SCH ×3 (11:35→18:32)
[2022-06-29] MEDS: Potassium Chloride 20 MEQ in Premix Bag 1 BAG IVPB SCH ×3 (11:45→23:05)
[2022-06-29] MEDS ORDERED: EPINEPHrine 1 MG/ML AMP ONE (13:53)
[2022-06-29] MEDS ORDERED: Lidocaine 1% (PF) 30 ML VIAL ONE (13:53)
[2022-06-29] MEDS ORDERED: Bupivacaine/Epinephrine 0.25% 30 ML VIAL ONE (13:53)
[2022-06-29] MEDS ORDERED: Chlorhexidine Gluconate 15 ML UDCUP SSP ONE (13:53)
[2022-06-29] MEDS ORDERED: fentaNYL PF 100 MCG/2 ML SYRINGE ONE (14:23)
[2022-06-29] MEDS ORDERED: Lidocaine 2% 6 ML SYR ONE (14:45)
[2022-06-29] MEDS ORDERED: Oxymetazoline HCl 0.05% (30 ML BOT) ONE (14:45)
[2022-06-29] MEDS ORDERED: Phenylephrine 10 MG/ML VIAL ONE (14:59)
[2022-06-29] MEDS ORDERED: Dexamethasone 20 MG/5 ML VIAL ONE (14:59)
[2022-06-29] MEDS ORDERED: Ondansetron PF 4 MG/2 ML Vial ONE (14:59)
[2022-06-29] MEDS ORDERED: Rocuronium Bromide 10 MG/ML (10ML VIAL) ONE (14:59)
[2022-06-29] MEDS ORDERED: PROPOFOL 200 MG/20 ML VIAL ONE (14:59)
[2022-06-29] MEDS ORDERED: ePHEDrine 50 MG/ML VIAL ONE (14:59)
[2022-06-29] MEDS ORDERED: Neomycin-Polymyxin 1 ML AMP ONE (15:36)
[2022-06-29] MEDS ORDERED: Bacitracin Zinc Ointment 30 gm TUBE ONE (17:22)
[2022-06-29] MEDS ORDERED: FENTANYL 500 MCG/10 ML VIAL 2,000 MCG in Sodium Chloride 0.9% 60 ML IV PRN (17:39)
[2022-06-29] MEDS ORDERED: Dexmedetomidine In 0.9 % NaCl 100 ML IVPB SCH (18:00)
[2022-06-29] MEDS ORDERED: Fentanyl CADD 100 ML ONE (18:14)
[2022-06-29 18:16] LABS: Actual Bicarbonate (HCO3a) 32.8 mEq/L (22-28); CO2 Tension 47.6 mmHg (35.0-45.0); Calcium, Ionized (arterial) 1.08 mmol/L (1.12-1.30); Carboxyhemoglobin (COHb) 0.5 gm% (0.0-3.0); Hemoglobin (Hb) 8.6 g/dL (14.0-18.0); O2 Tension (PaO2), arterial 87.7 mmHg (> 80.0); Potassium - ABG Lab 3.48 mmol/L (3.70-5.30); pH, Arterial 7.46 (7.35-7.45)
[2022-06-29 18:20] LABS: Puncture Site RBR
[2022-06-29] MEDS ORDERED: Fentanyl CADD 100 ML IV SCH (18:30)
[2022-06-29 19:27] LABS: Anion Gap 12 mmol/L (10-20); BUN (Urea Nitrogen) 27 mg/dL (8.4-25.7); Calc. Creatinine Clearance 102 mL/min (70-130); Carbon Dioxide 31 mmol/L (23-31); Chloride 109 mmol/L (98-107); Estimated GFR 97; Glucose 160 mg/dL (80-115); Magnesium 1.9 mg/dL (1.6-2.6); Phosphorus 3.6 mg/dL (2.3-4.7); Potassium 3.7 mmol/L (3.5-5.1); Sodium 148 mmol/L (136-145)
[2022-06-29] MEDS: Melatonin 3 MG TAB PO SCH (20:37)
[2022-06-29] MEDS ORDERED: Magnesium 2 GM/50 ML(in water) 2 GM in Premix Bag 1 BAG IVPB SCH (20:45)
[2022-06-29] MEDS: Bacitracin 1 PK TOP SCH (20:46)
[2022-06-30] MEDS: cloNIDine 0.1 MG TAB PO SCH ×2 (00:16→05:03)
[2022-06-30] MEDS: Hydrocortisone Sod Succ/PF 100 mg/2 ml Vial IVP SCH ×4 (00:17→17:44)
[2022-06-30] MEDS: Potassium Chloride 20 MEQ in Premix Bag 1 BAG IVPB SCH (00:18)
[2022-06-30] MEDS: HumaLOG 300 UNITS/3 ML VIAL SC PRN ×5 (00:24→21:04)
[2022-06-30] MEDS ORDERED: Fentanyl CADD 100 ML ONE (03:39)
[2022-06-30] MEDS: Acetaminophen 500 MG TAB PO SCH ×2 (04:58→09:29)
[2022-06-30] MEDS: Piperacillin/Tazobactam 3.375 GM in Sodium Chloride 0.9% 100 ML IVPB SCH ×3 (05:03→22:04)
[2022-06-30] MEDS: Metoprolol Tartrate 25 MG TAB PO SCH ×3 (05:04→17:44)
[2022-06-30] MEDS: carBAMazepine 200 MG TAB PO SCH ×3 (08:05→16:22)
[2022-06-30] MEDS ORDERED: Midazolam HCl 2 mg/2 ml Vial SLOW IVP SCH (08:45)
[2022-06-30 08:56] LABS: Hemoglobin 8.7 g/dL (14.0-18.0); Mean Corpuscular HGB CONC 33.5 g/dL (32.0-36.0); Mean Corpuscular Hemoglobin 32.1 pg (27.0-31.0); Mean Corpuscular Volume 95.8 fl (78.0-98.0); Mean Platelet Volume 9.1 fL (7.4-10.4); Platelet Count 141 10x3/uL (130-400); RBC Distribution Width 12.5 % (11.5-14.5); White Blood Cell (WBC) Count 18.7 10x3/uL (4.8-10.8)
[2022-06-30] MEDS: levETIRAcetam 500 MG/5 ML VIAL SLOW IVP SCH ×2 (09:09→20:02)
[2022-06-30] MEDS: Bacitracin 1 PK TOP SCH ×2 (09:09→20:02)
[2022-06-30] MEDS: Famotidine/PF 20 mg/2ml Vial SLOW IVP SCH ×2 (09:09→20:02)
[2022-06-30] MEDS: Cyclobenzaprine 10 MG TAB PO PRN ×2 (09:29→23:33)
[2022-06-30] MEDS ORDERED: Propofol 1,000 MG/100 ML VIAL IV ONE (09:37)
[2022-06-30 09:38] LABS: Band 14 % (5-11); Lymphocytes 6 % (21-51); MDiff Complete? YES; Metamyelocyte 1 % (0-0); Monocytes 4 % (0-10); Neutrophil 75 % (42-75); Platelet Morphology Comment Appears Adequate; Polychromasia SLIGHT = 2-3 cells (100X) (0-2/hpf)
[2022-06-30] MEDS ORDERED: Midazolam HCl 2 mg/2 ml Vial IVP SCH (09:45)
[2022-06-30 09:59] LABS: Phosphorus 2.7 mg/dL (2.3-4.7)
[2022-06-30 10:00] LABS: Anion Gap 13 mmol/L (10-20); BUN (Urea Nitrogen) 36 mg/dL (8.4-25.7); Calc. Creatinine Clearance 90 mL/min (70-130); Calcium 8.2 mg/dL (7.8-10.44); Carbon Dioxide 30 mmol/L (23-31); Chloride 110 mmol/L (98-107); Estimated GFR 87; Glucose 175 mg/dL (80-115); Magnesium 2.5 mg/dL (1.6-2.6); Potassium 3.5 mmol/L (3.5-5.1); Sodium 149 mmol/L (136-145)
[2022-06-30] MEDS ORDERED: Nicotine 14 MG PATCH TOP SCH (10:45)
[2022-06-30] MEDS ORDERED: Acetaminophen/Codeine 30-300mg Tablet PO PRN (10:51)
[2022-06-30] MEDS ORDERED: Morphine 2 MG/ML VIAL SLOW IVP PRN (10:53)
[2022-06-30] MEDS: Acetaminophen/Codeine 30-300mg Tablet PO SCH ×3 (12:20→22:03)
[2022-06-30] MEDS ORDERED: Potassium Phosphate 30 MMOL in Sodium Chloride 0.9% 250 ML 250 ML IVPB SCH (12:30)
[2022-06-30] MEDS: Oxazepam 10 MG CAP PO SCH ×2 (13:27→22:02)
[2022-06-30] MEDS: Acetaminophen 325 MG TAB PO SCH ×2 (16:20→22:03)
[2022-06-30] MEDS ORDERED: Furosemide 20 MG/2 ML VIAL SLOW IVP SCH (19:30)
[2022-06-30] MEDS ORDERED: Potassium Chloride 40 MEQ in Premix Bag 1 BAG IVPB SCH (19:30)
[2022-06-30] MEDS: Melatonin 3 MG TAB PO SCH (20:02)
[2022-06-30] MEDS: hydrALAZINE 20 MG/ML VIAL SLOW IVP PRN (20:02)
[2022-06-30] MEDS: cloNIDine 0.2 MG TAB PO SCH (22:03)
[2022-07-01] MEDS ORDERED: Morphine 4 MG/ML VIAL SLOW IVP PRN (03:05)
[2022-07-01] MEDS: Acetaminophen 325 MG TAB PO SCH ×4 (03:18→21:33)
[2022-07-01] MEDS: cloNIDine 0.2 MG TAB PO SCH ×4 (04:07→23:28)
[2022-07-01] MEDS: Acetaminophen/Codeine 30-300mg Tablet PO SCH ×5 (04:08→23:35)
[2022-07-01] MEDS: Metoprolol Tartrate 25 MG TAB PO SCH (04:08)
[2022-07-01] MEDS: Oxazepam 10 MG CAP PO SCH ×3 (04:08→23:28)
[2022-07-01] MEDS: Piperacillin/Tazobactam 3.375 GM in Sodium Chloride 0.9% 100 ML IVPB SCH ×3 (04:09→21:32)
[2022-07-01] MEDS: hydrALAZINE 20 MG/ML VIAL SLOW IVP PRN ×2 (04:09→10:49)
[2022-07-01] MEDS: HumaLOG 300 UNITS/3 ML VIAL SC PRN ×2 (04:19→23:46)
[2022-07-01 04:20] LABS: Hemoglobin 8.5 g/dL (14.0-18.0); Mean Corpuscular HGB CONC 32.2 g/dL (32.0-36.0); Mean Corpuscular Hemoglobin 32.6 pg (27.0-31.0); Mean Platelet Volume 9.6 fL (7.4-10.4); Platelet Count 141 10x3/uL (130-400); RBC Distribution Width 13.1 % (11.5-14.5); Red Blood Cell (RBC) Count 2.59 mill/uL (4.70-6.10); White Blood Cell (WBC) Count 24.3 10x3/uL (4.8-10.8)
[2022-07-01 04:38] LABS: Anion Gap 13 mmol/L (10-20); BUN (Urea Nitrogen) 31 mg/dL (8.4-25.7); Calc. Creatinine Clearance 123 mL/min (70-130); Calcium 7.7 mg/dL (7.8-10.44); Carbon Dioxide 27 mmol/L (22-29); Chloride 110 mmol/L (98-107); Estimated GFR 102; Glucose 164 mg/dL (70-105); Magnesium 2.2 mg/dL (1.6-2.6); Phosphorus 2.7 mg/dL (2.3-4.7); Potassium 3.3 mmol/L (3.5-5.1); Sodium 147 mmol/L (136-145)
[2022-07-01 04:56] LABS: Band 19 % (5-11); Hypochromia SLIGHT = 6-15 cells (100X) (0-5/hpf); Lymphocytes 13 % (21-51); MDiff Complete? YES; Neutrophil 68 % (42-75); Nucleated RBC 6 % (0); Platelet Morphology Comment Appears Adequate
[2022-07-01] MEDS: carBAMazepine 200 MG TAB PO SCH ×3 (08:45→16:50)
[2022-07-01] MEDS: Thiamine 100 MG TAB PO SCH (09:00)
[2022-07-01] MEDS: levETIRAcetam 500 MG/5 ML VIAL SLOW IVP SCH ×2 (10:01→21:32)
[2022-07-01] MEDS: Folic Acid 1 MG TAB PO SCH (10:02)
[2022-07-01] MEDS: Senokot S 8.6-50 MG TAB PO SCH ×2 (10:02→21:33)
[2022-07-01] MEDS: Bacitracin 1 PK TOP SCH ×2 (10:02→21:33)
[2022-07-01] MEDS: Polyethylene Glycol 3350 17 GM Packet PO SCH (10:03)
[2022-07-01] MEDS: Famotidine/PF 20 mg/2ml Vial SLOW IVP SCH ×2 (10:04→21:32)
[2022-07-01] MEDS: Enoxaparin Sodium 40 MG/0.4 ML SYRINGE SC SCH (10:37)
[2022-07-01] MEDS ORDERED: niCARdipine 25 MG in Sodium Chloride 0.9% 250 ML 250 ML IVPB SCH (12:15)
[2022-07-01] MEDS ORDERED: Lisinopril 10 MG TAB PO SCH ×2 (12:15→21:00)
[2022-07-01] MEDS ORDERED: Midazolam HCl 2 mg/2 ml Vial SLOW IVP SCH (17:00)
[2022-07-01] MEDS: Metoprolol Tartrate 50 MG TAB PO SCH (18:07)
[2022-07-01 20:37] LABS: INR-International Normal Ratio 1.6; PTT 27.7 sec (22.9-36.1); Prothrombin Time 19.5 sec (12.0-14.7)
[2022-07-01 20:46] LABS: ALT (SGPT) 819 U/L (8-55); AST (SGOT) 116 U/L (5-34); Alkaline Phosphatase 82 U/L (40-110); Bilirubin, Direct 3.8 mg/dL (0.1-0.3); Bilirubin, Total 7.6 mg/dL (0.2-1.2); Protein, Total 5.6 g/dL (6.0-8.3)
[2022-07-01] MEDS ORDERED: Phytonadione 10 MG in Sodium Chloride 0.9% 50 ML IVPB SCH (21:30)
[2022-07-01] MEDS ORDERED: Lactated Ringer's 500 ML IV SCH (21:30)
[2022-07-01] MEDS: Melatonin 3 MG TAB PO SCH (21:32)
[2022-07-02 04:50] LABS: INR-International Normal Ratio 1.5; PTT 26.3 sec (22.9-36.1); Prothrombin Time 18.3 sec (12.0-14.7)
[2022-07-02] MEDS: Acetaminophen/Codeine 30-300mg Tablet PO SCH (04:56)
[2022-07-02] MEDS: cloNIDine 0.2 MG TAB PO SCH ×3 (04:56→17:44)
[2022-07-02 04:57] LABS: ALT (SGPT) 733 U/L (8-55); AST (SGOT) 103 U/L (5-34); Alkaline Phosphatase 89 U/L (40-110); Bilirubin, Direct 4.1 mg/dL (0.1-0.3); Bilirubin, Total 7.7 mg/dL (0.2-1.2); Protein, Total 5.7 g/dL (6.0-8.3)
[2022-07-02] MEDS: Acetaminophen 325 MG TAB PO SCH (04:57)
[2022-07-02] MEDS: Metoprolol Tartrate 50 MG TAB PO SCH (04:57)
[2022-07-02 05:03] LABS: Anion Gap 11 mmol/L (10-20); BUN (Urea Nitrogen) 20 mg/dL (8.4-25.7); Calc. Creatinine Clearance 132 mL/min (70-130); Calcium 7.7 mg/dL (7.8-10.44); Carbon Dioxide 30 mmol/L (22-29); Chloride 107 mmol/L (98-107); Estimated GFR 104; Glucose 153 mg/dL (70-105); Magnesium 2.1 mg/dL (1.6-2.6); Phosphorus 3.3 mg/dL (2.3-4.7); Sodium 145 mmol/L (136-145)
[2022-07-02] MEDS: Oxazepam 10 MG CAP PO SCH ×2 (05:30→17:43)
[2022-07-02 05:57] LABS: Band 14 % (5-11); Basophilic Stippling SLIGHT = 1-2 cells (100X) (None Seen); Hemoglobin 8.7 g/dL (14.0-18.0); Lymphocytes 13 % (21-51); MDiff Complete? YES; Macrocytosis SLIGHT = 6-15 cells (100X) (0-5/hpf); Mean Corpuscular HGB CONC 32.8 g/dL (32.0-36.0); Mean Corpuscular Hemoglobin 32.2 pg (27.0-31.0); Mean Corpuscular Volume 98.1 fl (78.0-98.0); Mean Platelet Volume 9.4 fL (7.4-10.4); Metamyelocyte 2 % (0-0); Monocytes 6 % (0-10); Myelocyte 1 % (0-0); Neutrophil 64 % (42-75); Nucleated RBC 7 % (0); Ovalocytes SLIGHT = 2-5 cells (100X) (0-1/hpf); Platelet Count 137 10x3/uL (130-400); Platelet Morphology Comment Appears Adequate; Polychromasia SLIGHT = 2-3 cells (100X) (0-2/hpf); RBC Distribution Width 13.4 % (11.5-14.5); Red Blood Cell (RBC) Count 2.71 mill/uL (4.70-6.10); White Blood Cell (WBC) Count 18.6 10x3/uL (4.8-10.8)
[2022-07-02] MEDS: Piperacillin/Tazobactam 3.375 GM in Sodium Chloride 0.9% 100 ML IVPB SCH ×3 (06:00→21:10)
[2022-07-02] MEDS ORDERED: Potassium Chloride 20 MEQ TAB PO SCH (08:15)
[2022-07-02] MEDS ORDERED: Ibuprofen 200 MG TAB PO PRN (08:21)
[2022-07-02] MEDS ORDERED: oxyCODONE 5 MG TAB PO PRN (08:22)
[2022-07-02] MEDS: Potassium Chloride 20 MEQ in Premix Bag 1 BAG IVPB SCH ×2 (08:43→17:29)
[2022-07-02] MEDS: Senokot S 8.6-50 MG TAB PO SCH ×2 (08:44→21:13)
[2022-07-02] MEDS: Famotidine 20 MG TAB PO SCH ×2 (08:44→21:12)
[2022-07-02] MEDS: Folic Acid 1 MG TAB PO SCH (08:44)
[2022-07-02] MEDS: levETIRAcetam 500 MG/5 ML VIAL SLOW IVP SCH ×2 (08:45→21:12)
[2022-07-02] MEDS: Thiamine 100 MG TAB PO SCH (08:45)
[2022-07-02] MEDS: Polyethylene Glycol 3350 17 GM Packet PO SCH (08:45)
[2022-07-02] MEDS: Enoxaparin Sodium 40 MG/0.4 ML SYRINGE SC SCH (08:46)
[2022-07-02] MEDS: Bacitracin 1 PK TOP SCH (08:46)
[2022-07-02] MEDS ORDERED: Lisinopril 10 MG TAB PO SCH (09:00)
[2022-07-02] MEDS ORDERED: Acetaminophen 325 MG TAB PO SCH (10:00)
[2022-07-02] MEDS: carBAMazepine 200 MG TAB PO SCH (15:11)
[2022-07-02] MEDS: oxyCODONE 5 MG TAB PO SCH ×2 (17:29→17:43)
[2022-07-02] MEDS: Metoprolol Tartrate 25 MG TAB PO SCH (17:43)
[2022-07-02] MEDS: Melatonin 3 MG TAB PO SCH (21:12)
[2022-07-02] MEDS: HumaLOG 300 UNITS/3 ML VIAL SC PRN (21:14)
[2022-07-03] MEDS: cloNIDine 0.2 MG TAB PO SCH ×4 (00:20→17:20)
[2022-07-03] MEDS: oxyCODONE 5 MG TAB PO SCH ×4 (00:20→17:20)
[2022-07-03] MEDS: Bacitracin 1 PK TOP SCH ×3 (00:26→20:45)
[2022-07-03] MEDS: Piperacillin/Tazobactam 3.375 GM in Sodium Chloride 0.9% 100 ML IVPB SCH ×3 (06:30→21:45)
[2022-07-03] MEDS: Metoprolol Tartrate 25 MG TAB PO SCH ×2 (06:31→17:21)
[2022-07-03] MEDS: Oxazepam 10 MG CAP PO SCH ×2 (06:31→17:20)
[2022-07-03 06:53] LABS: Hemoglobin 10.1 g/dL (14.0-18.0); Mean Corpuscular HGB CONC 33.4 g/dL (32.0-36.0); Mean Corpuscular Hemoglobin 32.8 pg (27.0-31.0); Mean Corpuscular Volume 98.2 fl (78.0-98.0); Mean Platelet Volume 9.6 fL (7.4-10.4); Platelet Count 163 10x3/uL (130-400); RBC Distribution Width 13.5 % (11.5-14.5); Red Blood Cell (RBC) Count 3.08 mill/uL (4.70-6.10); White Blood Cell (WBC) Count 18.4 10x3/uL (4.8-10.8)
[2022-07-03 07:09] LABS: Anion Gap 14 mmol/L (10-20); BUN (Urea Nitrogen) 13 mg/dL (8.4-25.7); Calc. Creatinine Clearance 158 mL/min (70-130); Calcium 7.9 mg/dL (7.8-10.44); Carbon Dioxide 25 mmol/L (22-29); Chloride 103 mmol/L (98-107); Estimated GFR 110; Glucose 162 mg/dL (70-105); Magnesium 1.7 mg/dL (1.6-2.6); Phosphorus 2.1 mg/dL (2.3-4.7); Potassium 3.2 mmol/L (3.5-5.1); Sodium 139 mmol/L (136-145)
[2022-07-03] MEDS ORDERED: Potassium Phosphate 30 MMOL, Magnesium Sulfate 3 GM in Sodium Chloride 0.9% 250 ML 250 ML IVPB SCH (08:45)
[2022-07-03] MEDS ORDERED: levETIRAcetam 500 MG TAB PO SCH (09:00)
[2022-07-03] MEDS ORDERED: Lisinopril 5 MG TAB PO SCH (09:00)
[2022-07-03] MEDS: Thiamine 100 MG TAB PO SCH (09:22)
[2022-07-03] MEDS: Folic Acid 1 MG TAB PO SCH (09:23)
[2022-07-03] MEDS: Enoxaparin Sodium 40 MG/0.4 ML SYRINGE SC SCH (09:23)
[2022-07-03] MEDS: Polyethylene Glycol 3350 17 GM Packet PO SCH (09:23)
[2022-07-03] MEDS: Famotidine 20 MG TAB PO SCH ×2 (09:23→20:45)
[2022-07-03] MEDS: Senokot S 8.6-50 MG TAB PO SCH ×2 (09:24→20:45)
[2022-07-03 11:23] LABS: Band 13 % (5-11); Eosinophils 2 % (0-10); Lymphocytes 8 % (21-51); MDiff Complete? YES; Metamyelocyte 1 % (0-0); Monocytes 3 % (0-10); Neutrophil 73 % (42-75); Nucleated RBC 2 % (0); Platelet Morphology Comment Appears Adequate; Polychromasia MODERATE = 3-4 cells (100X) (0-2/hpf)
[2022-07-03] MEDS: Chlorhexidine Gluconate 15 ML UDCUP SSP SCH ×2 (15:07→20:45)
[2022-07-03] MEDS: Atorvastatin Calcium 10 MG TAB PO SCH (20:45)
[2022-07-03] MEDS: HumaLOG 300 UNITS/3 ML VIAL SC PRN (21:45)
[2022-07-04] MEDS: oxyCODONE 5 MG TAB PO SCH ×4 (00:32→17:33)
[2022-07-04] MEDS: Piperacillin/Tazobactam 3.375 GM in Sodium Chloride 0.9% 100 ML IVPB SCH ×2 (05:50→21:08)
[2022-07-04] MEDS: Metoprolol Tartrate 25 MG TAB PO SCH (05:51)
[2022-07-04] MEDS: cloNIDine 0.2 MG TAB PO SCH ×2 (05:51)
[2022-07-04] MEDS: Oxazepam 10 MG CAP PO SCH (05:52)
[2022-07-04 07:11] LABS: ALT (SGPT) 279 U/L (8-55); AST (SGOT) 85 U/L (5-34); Albumin 2.6 g/dL (3.5-5.0); Alkaline Phosphatase 133 U/L (40-110); Anion Gap 15 mmol/L (10-20); BUN (Urea Nitrogen) 11 mg/dL (8.4-25.7); Bilirubin, Total 13.3 mg/dL (0.2-1.2); Calc. Creatinine Clearance 199 mL/min (70-130); Calcium 7.7 mg/dL (7.8-10.44); Carbon Dioxide 21 mmol/L (22-29); Chloride 105 mmol/L (98-107); Estimated GFR 116; Globulin 3.1 g/dL (2.4-3.5); Glucose 125 mg/dL (70-105); Phosphorus 2.8 mg/dL (2.3-4.7); Potassium 3.8 mmol/L (3.5-5.1); Protein, Total 5.7 g/dL (6.0-8.3); Sodium 137 mmol/L (136-145)
[2022-07-04] MEDS: Chlorhexidine Gluconate 15 ML UDCUP SSP SCH ×3 (08:38→21:08)
[2022-07-04] MEDS: Famotidine 20 MG TAB PO SCH ×2 (08:38→21:08)
[2022-07-04] MEDS: Thiamine 100 MG TAB PO SCH (08:38)
[2022-07-04] MEDS: Folic Acid 1 MG TAB PO SCH (08:38)
[2022-07-04] MEDS: Lisinopril 10 MG TAB PO SCH (08:38)
[2022-07-04] MEDS: Polyethylene Glycol 3350 17 GM Packet PO SCH (08:39)
[2022-07-04] MEDS: Bacitracin 1 PK TOP SCH ×2 (08:39→21:08)
[2022-07-04] MEDS: Enoxaparin Sodium 40 MG/0.4 ML SYRINGE SC SCH (08:39)
[2022-07-04] MEDS: Senokot S 8.6-50 MG TAB PO SCH ×2 (08:45→21:08)
[2022-07-04] MEDS ORDERED: Potassium Phosphate 30 MMOL in Sodium Chloride 0.9% 250 ML 250 ML IVPB SCH (09:00)
[2022-07-04 10:32] LABS: Hemoglobin 10.2 g/dL (14.0-18.0); Mean Corpuscular HGB CONC 32.1 g/dL (32.0-36.0); Mean Corpuscular Volume 99.6 fl (78.0-98.0); Mean Platelet Volume 10.1 fL (7.4-10.4); Platelet Count 134 10x3/uL (130-400); RBC Distribution Width 17.3 % (11.5-14.5); Red Blood Cell (RBC) Count 3.19 mill/uL (4.70-6.10); White Blood Cell (WBC) Count 20.8 10x3/uL (4.8-10.8)
[2022-07-04 10:43] LABS: Band 10 % (5-11); Eosinophils 2 % (0-10); Lymphocytes 5 % (21-51); MDiff Complete? YES; Monocytes 4 % (0-10); Neutrophil 79 % (42-75); Nucleated RBC 1 % (0); Platelet Morphology Comment Appears Adequate; Polychromasia MODERATE = 3-4 cells (100X) (0-2/hpf)
[2022-07-04] MEDS ORDERED: Furosemide 20 MG/2 ML VIAL SLOW IVP SCH (11:15)
[2022-07-04 14:10] LABS: Analyzer IN Cardio OR; Base Excess (BEa) -10.6 mEq/L (-2.0 to +3.0); CO2 Tension 43.8 mmHg (35.0-45.0); Carboxyhemoglobin (COHb) 1.1 gm% (0.0-3.0); Hemoglobin (Hb) 13.7 g/dL (14.0-18.0); O2 Tension (PaO2), arterial 296.3 mmHg (80.0-100.0); Potassium - ABG Lab 5.08 mmol/L (3.70-5.30); pH, Arterial 7.21 (7.35-7.45)
[2022-07-04 14:10] LABS: Analyzer IN Cardio OR; Base Excess (BEa) -16.2 mEq/L (-2.0 to +3.0); CO2 Tension 49.8 mmHg (35.0-45.0); Calcium, Ionized (arterial) 1.01 mmol/L (1.12-1.30); Carboxyhemoglobin (COHb) 0.8 gm% (0.0-3.0); Hemoglobin (Hb) 15.1 g/dL (14.0-18.0); O2 Tension (PaO2), arterial 210.9 mmHg (80.0-100.0); Potassium - ABG Lab 5.44 mmol/L (3.70-5.30)
[2022-07-04 14:11] LABS: Puncture Site Arterial Line; pH, Arterial 7.07 (7.35-7.45)
[2022-07-04 14:12] LABS: Calcium, Ionized (arterial) 2.94 mmol/L (1.12-1.30)
[2022-07-04 14:13] LABS: Puncture Site Arterial Line
[2022-07-04] MEDS ORDERED: Iopamidol-370 76% 500 ML 1 ML ONE (15:56)
[2022-07-04] MEDS ORDERED: Piperacillin/Tazobactam 3.375 GM in Sodium Chloride 0.9% 100 ML IVPB SCH (16:30)
[2022-07-04] MEDS: Atorvastatin Calcium 10 MG TAB PO SCH (21:07)
[2022-07-04] MEDS: Melatonin 3 MG TAB PO SCH ×2 (21:07)
[2022-07-04] MEDS: HumaLOG 300 UNITS/3 ML VIAL SC PRN (21:25)
[2022-07-05] MEDS: oxyCODONE 5 MG TAB PO SCH ×3 (00:06→13:33)
[2022-07-05] MEDS: Piperacillin/Tazobactam 3.375 GM in Sodium Chloride 0.9% 100 ML IVPB SCH ×2 (06:38→13:33)
[2022-07-05 07:51] LABS: ALT (SGPT) 226 U/L (8-55); AST (SGOT) 101 U/L (5-34); Albumin 2.9 g/dL (3.5-5.0); Alkaline Phosphatase 175 U/L (40-110); Anion Gap 14 mmol/L (10-20); BUN (Urea Nitrogen) 10 mg/dL (8.4-25.7); Bilirubin, Direct 8.6 mg/dL (0.1-0.3); Bilirubin, Total 15.2 mg/dL (0.2-1.2); Calc. Creatinine Clearance 163 mL/min (70-130); Carbon Dioxide 21 mmol/L (22-29); Chloride 102 mmol/L (98-107); Estimated GFR 114; Glucose 151 mg/dL (70-105); Magnesium 1.8 mg/dL (1.6-2.6); Phosphorus 2.3 mg/dL (2.3-4.7); Protein, Total 6.7 g/dL (6.0-8.3); Sodium 133 mmol/L (136-145)
[2022-07-05 08:59] LABS: Hemoglobin 10.3 g/dL (14.0-18.0); Mean Corpuscular HGB CONC 32.3 g/dL (32.0-36.0); Mean Corpuscular Hemoglobin 32.8 pg (27.0-31.0); Mean Platelet Volume 8.9 fL (7.4-10.4); Platelet Count 199 10x3/uL (130-400); RBC Distribution Width 18.1 % (11.5-14.5); Red Blood Cell (RBC) Count 3.14 mill/uL (4.70-6.10); White Blood Cell (WBC) Count 19.8 10x3/uL (4.8-10.8)
[2022-07-05 09:13] LABS: Band 1 % (5-11); Eosinophils 1 % (0-10); Lymphocytes 7 % (21-51); MDiff Complete? YES; Macrocytosis MODERATE=16-30 cells (100X) (0-5/hpf); Monocytes 4 % (0-10); Neutrophil 87 % (42-75); Platelet Morphology Comment Appears Adequate; Polychromasia MODERATE = 3-4 cells (100X) (0-2/hpf)
[2022-07-05] MEDS: Lisinopril 10 MG TAB PO SCH (09:14)
[2022-07-05] MEDS: Enoxaparin Sodium 40 MG/0.4 ML SYRINGE SC SCH (09:14)
[2022-07-05] MEDS: Thiamine 100 MG TAB PO SCH (09:14)
[2022-07-05] MEDS: Senokot S 8.6-50 MG TAB PO SCH (09:14)
[2022-07-05] MEDS: Bacitracin 1 PK TOP SCH (09:14)
[2022-07-05] MEDS: Chlorhexidine Gluconate 15 ML UDCUP SSP SCH ×2 (09:14→14:30)
[2022-07-05] MEDS: Famotidine 20 MG TAB PO SCH (09:15)
[2022-07-05] MEDS: Folic Acid 1 MG TAB PO SCH (09:15)
[2022-07-05] MEDS: Polyethylene Glycol 3350 17 GM Packet PO SCH (09:17)
[2022-07-05 12:06] VITALS: BP 155/90; TEMP 98.5
[2022-07-05] MEDS ORDERED: AMOXicillin 250 MG CAP PO SCH (15:00)
[2022-07-05] MEDS ORDERED: Albuterol 200 PUFF (6.7GM INHALER) INH SCH (17:15)
== END 2022-07-05 15:40 | disposition home or self-care (01) | DRG 957 ==
LOC: ERS 16:04 → SDC 16:36 → EDBD 19:37 → CCU 19:37 → SURG B 07-02 12:00
PROVIDERS: ADMIT Surgery; ATTEND Surgery
PROC: 0DQV0ZZ Repair Mesentery, Open Approach (ICD-10-PCS; principal; 2022-06-25)
PROC: 0D9W0ZZ Drainage of Peritoneum, Open Approach (ICD-10-PCS; 2022-06-25)
PROC: 04LF3DZ Occlusion of Left Internal Iliac Artery with Intraluminal Device, Percutaneous Approach (ICD-10-PCS; 2022-06-25)
PROC: 04LE3DZ Occlusion of Right Internal Iliac Artery with Intraluminal Device, Percutaneous Approach (ICD-10-PCS; 2022-06-25)
PROC: 30233K1 Transfusion of Nonautologous Frozen Plasma into Peripheral Vein, Percutaneous Approach (ICD-10-PCS; 2022-06-25)
PROC: 30233N1 Transfusion of Nonautologous Red Blood Cells into Peripheral Vein, Percutaneous Approach (ICD-10-PCS; 2022-06-25)
PROC: 6A550Z2 Pheresis of Platelets, Single (ICD-10-PCS; 2022-06-25)
PROC: 5A1945Z Respiratory Ventilation, 24-96 Consecutive Hours (ICD-10-PCS; 2022-06-25)
PROC: 0W9930Z Drainage of Right Pleural Cavity with Drainage Device, Percutaneous Approach (ICD-10-PCS; 2022-06-25)
PROC: 3E0M05Z Introduction of Adhesion Barrier into Peritoneal Cavity, Open Approach (ICD-10-PCS; 2022-06-25)
PROC: 06H03DZ Insertion of Intraluminal Device into Inferior Vena Cava, Percutaneous Approach (ICD-10-PCS; 2022-06-25)
PROC: B4101ZZ Fluoroscopy of Abdominal Aorta using Low Osmolar Contrast (ICD-10-PCS; 2022-06-25)
PROC: B31N1ZZ Fluoroscopy of Other Upper Arteries using Low Osmolar Contrast (ICD-10-PCS; 2022-06-25)
PROC: 0BH17EZ Insertion of Endotracheal Airway into Trachea, Via Natural or Artificial Opening (ICD-10-PCS; 2022-06-25)
PROC: 30233M1 Transfusion of Nonautologous Plasma Cryoprecipitate into Peripheral Vein, Percutaneous Approach (ICD-10-PCS; 2022-06-26)
PROC: 5A09357 Assistance with Respiratory Ventilation, Less than 24 Consecutive Hours, Continuous Positive Airway Pressure (ICD-10-PCS; 2022-06-29)
PROC: 0NSV04Z Reposition Left Mandible with Internal Fixation Device, Open Approach (ICD-10-PCS; 2022-06-29)
DX: S36.893A Laceration of other intra-abdominal organs, initial encounter (principal); Z20.822 Contact with and (suspected) exposure to COVID-19; S27.2XXA Traumatic hemopneumothorax, initial encounter; I21.4 Non-ST elevation (NSTEMI) myocardial infarction; J96.00 Acute respiratory failure, unspecified whether with hypoxia or hypercapnia; R57.8 Other shock; I47.20 Ventricular tachycardia, unspecified; S32.82XA Multiple fractures of pelvis without disruption of pelvic ring, initial encounter for closed fracture; S22.41XA Multiple fractures of ribs, right side, initial encounter for closed fracture; S02.832A Fracture of medial orbital wall, left side, initial encounter for closed fracture; S02.652A Fracture of angle of left mandible, initial encounter for closed fracture; E87.20 Acidosis, unspecified; S26.91XA Contusion of heart, unspecified with or without hemopericardium, initial encounter; D62 Acute posthemorrhagic anemia; N17.9 Acute kidney failure, unspecified; R56.1 Post traumatic seizures; E87.1 Hypo-osmolality and hyponatremia; S36.116A Major laceration of liver, initial encounter; R31.9 Hematuria, unspecified; I10 Essential (primary) hypertension; R94.5 Abnormal results of liver function studies; T79.6XXA Traumatic ischemia of muscle, initial encounter; E11.65 Type 2 diabetes mellitus with hyperglycemia; R40.2362 Coma scale, best motor response, obeys commands, at arrival to emergency department; R40.2142 Coma scale, eyes open, spontaneous, at arrival to emergency department; R40.2252 Coma scale, best verbal response, oriented, at arrival to emergency department; S06.0X0A Concussion without loss of consciousness, initial encounter; E83.51 Hypocalcemia; I49.3 Ventricular premature depolarization; E87.6 Hypokalemia; E83.39 Other disorders of phosphorus metabolism; K76.0 Fatty (change of) liver, not elsewhere classified; Z86.73 Personal history of transient ischemic attack (TIA), and cerebral infarction without residual deficits; Z79.899 Other long term (current) drug therapy; Z79.84 Long term (current) use of oral hypoglycemic drugs; Z79.4 Long term (current) use of insulin; Z79.02 Long term (current) use of antithrombotics/antiplatelets; V43.52XA Car driver injured in collision with other type car in traffic accident, initial encounter; Y92.410 Unspecified street and highway as the place of occurrence of the external cause; Z78.1 Physical restraint status
CPT/HCPCS: 31500; 36245; 36246; 36247; 36415; 36416; 36430; 36600; 37191; 37244; 70450; 70486; 70496; 70498; 71045; 71260; 72125; 72141; 72170; 72194; 74022; 74160; 74177; 75726; 75736; 75774; 75825; 75831; 76377; 76705; 80048; 80053; 80076; 80306; 80307; 81001; 82140; 82248; 82533; 82550; 82553; 82805; 83605; 83690; 83735; 83880; 84100; 84145; 84146; 84484; 85025; 85384; 85520; 85610; 85730; 86850; 86900; 86901; 87040; 87811; 93005; 93010; 93306; 94003; 94640; 94660; 95816; 95819; 95957; 96374; 96375; 99152; 99153; C1713; C1758; C1769; C1788; C1880; C1884; G0390; J0171; J0360; J1100; J1170; J1200; J1250; J1644; J1650; J1720; J1815; J1940; J1953; J2001; J2250; J2270; J2370; J2405; J2543; J2704; J3010; J3430; J3475; J3480; J3490; J7050; J7070; J7120; J7620; L0172; P9012; P9016; P9035; P9045; P9048; P9059; Q9967; S0028; U0002

== ENCOUNTER 2022-07-18 11:29 | Outpatient (CLI) | payer OTHER, SELFPAY | END 2022-07-18 11:30 | disposition home or self-care (01) | LOC: BICRAD 11:29 | PROVIDERS: ATTEND Specialist | DX: V87.7XXA Person injured in collision between other specified motor vehicles (traffic), initial encounter (principal) | CPT/HCPCS: 71046 ==